=== PATIENT | female | born 1975 ===

== ENCOUNTER 2017-01-01 19:37 | Emergency (ER) | payer OTHER, SELFPAY ==
[2017-01-01 19:55] VITALS: BMI 31.6
--- NOTE | 2017-01-01 19:57 | ED PDOC ---
HPI: Female Pain Time Seen by Provider: 01/01/17 19:53 Chief Complaint (Nursing): Female Genitourinary Chief Complaint (Provider): Dysuria History Per: Patient History/Exam Limitations: no limitations Onset/Duration Of Symptoms: Days (x2-3) Current Symptoms Are (Timing): Still Present Severity: Moderate Quality Of Discomfort: Other (suprapubic) Associated Symptoms: Fever (102.7F), Chest Pain (worse w/deep inspiration) Alleviating Factors: None Additional Complaint(s): Abigail Rosen is a 41 year old female, with no pertinent past medical history, who presents to the ED on 01/01/17 for the evaluation of moderate dysuria that she has experienced x2-3 days. Associated fever (Tmax 102.7F) and suprapubic abdominal pain also reported, in addition to some midsternal chest pain that she began to experience as of today; worse with deep inspiration. Denies rhinorrhea, cough, ear pain or recent travel. Has medicated with Nyquil and Theraflu without relief. PMD: Javier Peterson Past Medical History Reviewed: Historical Data, Nursing Documentation, Vital Signs Vital Signs: Last Vital Signs Temp 102.7 F H 01/01/17 19:47 Pulse 116 H 01/01/17 19:47 Resp 20 01/01/17 19:47 BP Pulse Ox 96 01/01/17 19:47 - Medical History PMH: No Chronic Diseases - Surgical History Surgical History: No Surg Hx - Family History Family History: States: Unknown Family Hx - Living Arrangements Living Arrangements: With Family - Home Medications Home Medications: Ambulatory Orders Medication Instructions Recorded Nitrofurantoin Macrocrystals 100 mg PO BID #14 cap 01/01/17 [Macrobid] - Allergies Allergies/Adverse Reactions: Allergies Allergy/AdvReac Type Severity Reaction Status Date / Time No Known Allergies Allergy Verified 01/01/17 19:55 Review of Systems Constitutional: Positive for: Fever (Tmax 102.7F) ENT: Negative for: Ear Pain, Nose Discharge Cardiovascular: Positive for: Chest Pain (midsternal, worse with deep inspiration) Respiratory: Negative for: Cough Gastrointestinal: Positive for: Abdominal Pain (suprapubic) Genitourinary Female: Positive for: Dysuria Physical Exam - Reviewed Nursing Documentation Reviewed: Yes Vital Signs Reviewed: Yes - Physical Exam Appears: Positive for: Non-toxic, No Acute Distress Head Exam: Positive for: ATRAUMATIC, NORMOCEPHALIC Skin: Positive for: Normal Color, Warm, Dry Eye Exam: Positive for: Normal appearance, PERRL ENT: Positive for: Normal ENT Inspection Cardiovascular/Chest: Positive for: Regular Rate, Rhythm. Negative for: Murmur Respiratory: Positive for: Normal Breath Sounds. Negative for: Respiratory Distress Gastrointestinal/Abdominal: Positive for: Soft, Tenderness (mild, suprapubic) Back: Positive for: Normal Inspection. Negative for: L CVA Tenderness, R CVA Tenderness Neurologic/Psych: Positive for: Alert, Oriented - ECG O2 Sat by Pulse Oximetry: 96 (RA) Pulse Ox Interpretation: Normal Medical Decision Making Medical Decision Makin:53 Initial Impression: UTI Initial Plan: * Upreg * Urinalysis * Motrin 600mg PO * Reevaluation Pt with (+) UTI-will send cx. pt placed on macrobid. VS improved advised to return to Ed if with worsened symptoms. Scribe Attestation: Documented by Raquel Harrison, acting as a scribe for Renetta Gamez PA-C. Provider Scribe Attestation: All medical record entries made by the Scribe were at my direction and personally dictated by me. I have reviewed the chart and agree that the record accurately reflects my personal performance of the history, physical exam, medical decision making, and the department course for this patient. I have also personally directed, reviewed, and agree with the discharge instructions and disposition. Disposition - Clinical Impression Clinical Impression: Urinary tract infection - Patient ED Disposition Is Patient to be Admitted: No Counseled Patient/Family Regarding: Diagnosis, Need For Followup, Rx Given - Disposition Disposition: Routine/Home Disposition Time: 20:33 Condition: STABLE Prescriptions: Nitrofurantoin Macrocrystals [Macrobid] 100 mg PO BID #14 cap Instructions: Urinary Tract Infection in Women (GEN) Print Language: CITIZEN OF [place]
[2017-01-01 19:58] VITALS: RESP 18
[2017-01-01 20:24] LABS: RBC URINE 9 /hpf (0-3); URINE BACTERIA OCC (<OCC); URINE BILIRUBIN NEGATIVE (NEGATIVE); URINE BLOOD SMALL (NEGATIVE); URINE COLOR AMBER (YELLOW); URINE GLUCOSE (UA) NEG (Normal); URINE KETONE 20 mg/dL (NEGATIVE); URINE LEUKOCYTE ESTERASE LARGE Leu/uL (Negative); URINE PROTEIN 30 mg/dL (NEGATIVE); WBC URINE 48 /hpf (0-5)
[2017-01-01 21:12] VITALS: BP 124/78; PULSE 74; TEMP 100.4; O2SAT 98
== END 2017-01-01 21:12 | disposition home or self-care (01) ==
LOC: H.ER 19:37
DX: N39.0 Urinary tract infection, site not specified (principal)

== ENCOUNTER 2017-01-04 14:50 | Emergency (ER) | payer OTHER ==
[2017-01-04 14:50] VITALS: BMI 31.6
[2017-01-04 15:00] VITALS: BP 129/79; PULSE 101; RESP 20; O2SAT 99
[2017-01-04] MEDS ORDERED: Sodium Chloride 0.9% 1,000 ML IV SCH (15:45)
[2017-01-04 16:25] LABS: BASO % 0.2 % (0.0-2.0); EOS % 0.3 % (0.0-4.0); HEMATOCRIT 40.2 % (34.0-47.0); LYMPH % 23.2 % (20.0-40.0); MEAN CORPUSCULAR HEMOGLOBIN 28.8 pg (27.0-31.0); MEAN CORPUSCULAR HGB CONC 34.2 g/dL (33.0-37.0); MEAN PLATELET VOLUME 9.2 fl (7.2-11.7); MONO # 0.5 K/uL (0.0-0.8); MONO % 11.4 % (0.0-10.0); NEUT # 2.7 K/uL (1.8-7.0); NEUT % 64.9 % (50.0-75.0); NRBC % 0.1 % (0.0-0.0); RED CELL DISTRIBUTION WIDTH 12.9 % (11.5-14.5); WHITE BLOOD COUNT 4.1 K/uL (4.8-10.8)
--- NOTE | 2017-01-04 16:27 | ED PDOC ---
HPI: Headache Time Seen by Provider: 01/04/17 15:05 Chief Complaint (Nursing): Headache Chief Complaint (Provider): fever, headache, dysuria History Per: Patient Additional Complaint(s): pt returns today for reevaluation of fevers, h/a ongoing for 4-5 days w/ associated n/v. last temp at home 102 this am. states she was seen here for same 4 days ago and was treated for uti with macrobid. denies dizziness, blurred vision, neck pain, cp, sob, abd pain, diarrhea, numbness, weakness to extremities. Past Medical History Reviewed: Historical Data, Nursing Documentation, Vital Signs Vital Signs: Last Vital Signs Temp 98.0 F 01/04/17 14:57 Pulse 101 H 01/04/17 14:57 Resp 20 01/04/17 14:57 BP 129/79 01/04/17 14:57 Pulse Ox 99 01/04/17 14:57 - Medical History PMH: No Chronic Diseases - Family History Family History: States: No Known Family Hx - Social History Current smoker - smoking cessation education provided: No Alcohol: None - Home Medications Home Medications: Ambulatory Orders Medication Instructions Recorded Nitrofurantoin Macrocrystals 100 mg PO BID #14 cap 01/01/17 [Macrobid] Ciprofloxacin 500 mg PO BID #20 [facility]..rec 01/04/17 Ibuprofen [Motrin] 600 mg PO Q8 #20 tab 01/04/17 - Allergies Allergies/Adverse Reactions: Allergies Allergy/AdvReac Type Severity Reaction Status Date / Time No Known Allergies Allergy Verified 01/04/17 14:57 Review of Systems ROS Statement: Except As Marked, All Systems Reviewed And Found Negative Constitutional: Positive for: Fever, Chills Gastrointestinal: Positive for: Nausea, Vomiting Genitourinary Female: Positive for: Dysuria Neurological: Positive for: Headache Physical Exam - Reviewed Nursing Documentation Reviewed: Yes Vital Signs Reviewed: Yes - Physical Exam Appears: Positive for: Non-toxic, Uncomfortable Head Exam: Positive for: ATRAUMATIC, NORMAL INSPECTION, NORMOCEPHALIC Skin: Positive for: Normal Color, Warm, DRY Eye Exam: Positive for: EOMI, Normal appearance, PERRL Neck: Positive for: Normal (no meningismus), Painless ROM Cardiovascular/Chest: Positive for: Regular Rate, Rhythm Respiratory: Positive for: CNT, Normal Breath Sounds Gastrointestinal/Abdominal: Positive for: Normal Exam, Bowel Sounds, Soft. Negative for: Tenderness Back: Negative for: L CVA Tenderness, R CVA Tenderness Neurologic/Psych: Positive for: Alert, weights and measures sealer II-XII, Oriented, Gait (steady). Negative for: Motor/Sensory Deficits - Laboratory Results Result Diagrams: 01/04/17 15:55 01/04/17 15:55 - ECG O2 Sat by Pulse Oximetry: 99 Medical Decision Making Medical Decision Makin mild relief with medications given. wbc 4.1. mild bacturia. ct head neg. pt seen and evaluated by Dr. Worrell. will add flu swab, motrin and reevaluate to discuss spinal tap. 1939 h/a resolving with motrin given. flu neg. risks/benefits spinal tap discussed with patient and family. pt elects at this time not to have spinal tap performed. will change abx based on urine sensitivity and give motrin for pain. advised pt to return at any time should she change her mind or have worsening or severe symptoms. will sign ama forms. Disposition - Clinical Impression Clinical Impression: Headache, Urinary tract infection - Patient ED Disposition Is Patient to be Admitted: No - Disposition Referrals: Javier Peterson MD [Primary Care Provider] - Disposition: Against Medical Advice Disposition Time: 19:42 Condition: IMPROVED Prescriptions: Ciprofloxacin 500 mg PO BID #20 [email or web address] Ibuprofen [Motrin] 600 mg PO Q8 #20 tab Instructions: Lumbar Puncture (ED), Acute Headache (ED), Urinary Tract Infection in Women (ED) Print Language: WELSH
[2017-01-04 16:29] LABS: BLOOD UREA NITROGEN 11 mg/dl (7-17); CALCIUM 8.9 mg/dL (8.4-10.2); CARBON DIOXIDE 25 mmol/L (22-30); CHLORIDE 100 mmol/L (98-107); GFR AFRICAN-AMERICAN > 60; GLUCOSE,RANDOM 123 mg/dL (65-105); POTASSIUM 3.5 MMOL/L (3.6-5.0); SODIUM 141 mmol/l (132-148)
[2017-01-04 16:31] LABS: MEAN CELL VOLUME 84.1 fl (81.0-99.0)
[2017-01-04 16:39] LABS: RBC URINE 2 /hpf (0-3); URINE BACTERIA FEW (<OCC); URINE BILIRUBIN NEGATIVE (NEGATIVE); URINE BLOOD SMALL (NEGATIVE); URINE COLOR YELLOW (YELLOW); URINE GLUCOSE (UA) NEG (Normal); URINE KETONE 20 mg/dL (NEGATIVE); URINE LEUKOCYTE ESTERASE NEG Leu/uL (Negative); URINE PROTEIN NEGATIVE (NEGATIVE); URINE UROBILINOGEN 0.2-1.0 mg/dL (0.2-1.0); WBC URINE 2 /hpf (0-5)
--- NOTE | 2017-01-04 17:11 | CT ---
PROCEDURE: CT HEAD WITHOUT CONTRAST. HISTORY: headache COMPARISON: Comparison is made to the previous study dated 12/10/2015 TECHNIQUE: Axial computed tomography images were obtained through the head/brain without intravenous contrast. Radiation dose: Total exam DLP = 778.9 mGy-cm. FINDINGS: HEMORRHAGE: No intracranial hemorrhage. BRAIN: No mass effect or edema. No atrophy or chronic microvascular ischemic changes. VENTRICLES: Unremarkable. No hydrocephalus. CALVARIUM: Unremarkable. PARANASAL SINUSES: Unremarkable as visualized. No significant inflammatory changes. MASTOID AIR CELLS: Unremarkable as visualized. No inflammatory changes. OTHER FINDINGS: None. IMPRESSION: Normal CT of the Head.
[2017-01-04 18:23] VITALS: TEMP 98.1
== END 2017-01-04 20:03 | disposition home or self-care (01) ==
LOC: H.ER 14:50
DX: N39.0 Urinary tract infection, site not specified (principal); R51 Headache

== ENCOUNTER 2018-06-09 12:07 | Emergency (ER) | payer OTHER, SELFPAY ==
[2018-06-09 12:07] VITALS: BMI 31.6
[2018-06-09 12:14] VITALS: BP 111/76; PULSE 78; RESP 16; TEMP 98; O2SAT 98
[2018-06-09] MEDS: Sodium Chloride 0.9% 1,000 ML IV STA (13:22)
[2018-06-09 13:36] LABS: BASO % 0.4 % (0.0-2.0); EOS # 0.1 K/uL (0.0-0.7); EOS % 2.5 % (0.0-4.0); HEMOGLOBIN 12.7 g/dL (12.0-16.0); LYMPH # 0.9 K/uL (1.0-4.3); LYMPH % 25.4 % (20.0-40.0); MEAN CELL VOLUME 86.7 fl (81.0-99.0); MEAN CORPUSCULAR HEMOGLOBIN 29.2 pg (27.0-31.0); MEAN CORPUSCULAR HGB CONC 33.7 g/dL (33.0-37.0); MEAN PLATELET VOLUME 8.2 fl (7.2-11.7); MONO # 0.4 K/uL (0.0-0.8); MONO % 11.4 % (0.0-10.0); NEUT # 2.2 K/uL (1.8-7.0); NEUT % 60.3 % (50.0-75.0); RBC 4.34 Mil/uL (3.80-5.20); RED CELL DISTRIBUTION WIDTH 13.2 % (11.5-14.5); WHITE BLOOD COUNT 3.6 K/uL (4.8-10.8)
[2018-06-09 13:40] LABS: SQUAMOUS EPITHIAL 2 /hpf (0-5); URINE BILIRUBIN NEGATIVE (NEGATIVE); URINE BLOOD SMALL (NEGATIVE); URINE CLARITY CLOUDY (Clear); URINE COLOR YELLOW (YELLOW); URINE GLUCOSE (UA) NEG (Normal); URINE LEUKOCYTE ESTERASE NEG Leu/uL (Negative); URINE PROTEIN 30 mg/dL (NEGATIVE); URINE UROBILINOGEN 0.2-1.0 mg/dL (0.2-1.0)
[2018-06-09 13:53] LABS: ALT/SGPT 22 U/L (9-52); AMYLASE 111 U/L (30-110); AST/SGOT 23 U/L (14-36); BLOOD UREA NITROGEN 11 mg/dl (7-17); CALCIUM 8.7 mg/dL (8.4-10.2); GFR NON-AFRICAN AMERICAN > 60; LIPASE 108 U/L (23-300)
--- NOTE | 2018-06-09 13:55 | ED PDOC ---
HPI: General Adult Time Seen by Provider: 06/09/18 12:20 Chief Complaint (Nursing): Abdominal Pain Chief Complaint (Provider): Abdominal Pain History Per: Patient Onset/Duration Of Symptoms: Days Current Symptoms Are (Timing): Still Present Additional Complaint(s): 42 year old female presents to the ED for an evaluation of abdominal cramping, tactile fever and diarrhea onset 4 days ago. Also reports of 3 -9 episodes of loose watery stool. Patient states she feels balls on her left buttock that are painful, swollen and red. She denies vomiting or nausea. PMD: Javier Peterson Past Medical History Reviewed: Historical Data, Nursing Documentation, Vital Signs Vital Signs: Last Vital Signs Temp 98.0 F 06/09/18 12:11 Pulse 78 06/09/18 12:11 Resp 16 06/09/18 12:11 BP 111/76 06/09/18 12:11 Pulse Ox 98 06/09/18 14:04 - Medical History PMH: No Chronic Diseases - Family History Family History: States: Unknown Family Hx - Social History Current smoker - smoking cessation education provided: No Alcohol: None Drugs: Denies - Home Medications Home Medications: Ambulatory Orders Medication Instructions Recorded Nitrofurantoin Macrocrystals 100 mg PO BID #14 cap 01/01/17 [Macrobid] Ciprofloxacin 500 mg PO BID #20 [facility]..rec 01/04/17 Ibuprofen [Motrin] 600 mg PO Q8 #20 tab 01/04/17 Acetaminophen/Codeine 1 tab PO Q4H #10 tab 06/09/18 [Tylenol/Codeine 300 MG/30 MG] Acyclovir [Zovirax] 800 mg PO 5XD 7 Days tab 06/09/18 Methylprednisolone [Medrol Dose 4 mg PO DAILY #21 mg 06/09/18 Pack (21 tabs)] - Allergies Allergies/Adverse Reactions: Allergies Allergy/AdvReac Type Severity Reaction Status Date / Time No Known Allergies Allergy Verified 06/09/18 12:11 Review of Systems ROS Statement: Except As Marked, All Systems Reviewed And Found Negative Constitutional: Positive for: Fever (tactile ) Gastrointestinal: Positive for: Abdominal Pain, Diarrhea, Other (watery stool ) . Negative for: Nausea, Vomiting Psych: Negative for: Suicidal ideation (homicidal ideation ) Physical Exam - Reviewed Nursing Documentation Reviewed: Yes Vital Signs Reviewed: Yes - Physical Exam Appears: Positive for: Well, Non-toxic, No Acute Distress Head Exam: Positive for: ATRAUMATIC, NORMAL INSPECTION, NORMOCEPHALIC Skin: Positive for: Rash (Left butt cheek is tender with erythematous vesicles, eruption s4 dermatome) Eye Exam: Positive for: Normal appearance, EOMI, PERRL ENT: Positive for: Normal ENT Inspection Neck: Positive for: Normal, Painless ROM, Supple. Negative for: Decreased ROM Cardiovascular/Chest: Positive for: Regular Rate, Rhythm. Negative for: Murmur Respiratory: Positive for: Normal Breath Sounds. Negative for: Decreased Breath Sounds, Wheezing, Respiratory Distress Gastrointestinal/Abdominal: Positive for: Normal Exam, Bowel Sounds, Soft. Negative for: Tenderness, Guarding, Rebound Back: Positive for: Normal Inspection. Negative for: L CVA Tenderness, R CVA Tenderness Extremity: Positive for: Normal ROM, Tenderness. Negative for: Pedal Edema, Deformity, Swelling Neurologic/Psych: Positive for: Alert, Oriented (x3). Negative for: Motor/ Sensory Deficits - Laboratory Results Result Diagrams: 06/09/18 13:20 06/09/18 13:20 - ECG O2 Sat by Pulse Oximetry: 98 (RA) Pulse Ox Interpretation: Normal Medical Decision Making Medical Decision Making: Time: 1309 Initial Impression: viral syndrome and shingles Initial Plan: --Amylase --CMP --Lipase --ED Urine --ED Urine Dipstick --CBC w/ Differential --Normal Saline 999mls/hr --SOLU-Medrol 125mg --Toradol 30mg --Zovirax 800mg --Urine Culture --IV Insertion --Urinalysis --Reevaluation Pt on re-eval reports pain is greatly improved. Scribe Attestation: Documented by Jyotsna Lawrence, acting as a scribe for Bree A Petronella, PA-C. Provider Scribe Attestation: All medical record entries made by the Scribe were at my direction and personally dictated by me. I have reviewed the chart and agree that the record accurately reflects my personal performance of the history, physical exam, medical decision making, and the department course for this patient. I have also personally directed, reviewed, and agree with the discharge instructions and disposition. Disposition - Clinical Impression Clinical Impression: Shingles, Viral syndrome - Patient ED Disposition Is Patient to be Admitted: No - Disposition Disposition: Routine/Home Disposition Time: 14:00 Condition: STABLE Prescriptions: Acetaminophen/Codeine [Tylenol/Codeine 300 MG/30 MG] 1 tab PO Q4H #10 tab Acyclovir [Zovirax] 800 mg PO 5XD 7 Days tab Methylprednisolone [Medrol Dose Pack (21 tabs)] 4 mg PO DAILY #21 mg Instructions: Shingles (DC), Viral Syndrome (DC) Forms: [facility] [facility] (Guatemalan) Print Language: DANISH
[2018-06-09] MEDS: Potassium Chloride 20 mEq ER Tab PO ONE (17:06)
[2018-06-09] MEDS ORDERED: Potassium Chloride 20 mEq ER Tab PO ONE (17:06)
== END 2018-06-09 17:15 | disposition home or self-care (01) ==
LOC: H.ER 12:07
DX: B34.9 Viral infection, unspecified (principal); B02.9 Zoster without complications
CPT/HCPCS: 80053; 81003; 82150; 83690; 85025; 87086; 96361; 96374; 96375; 99285; J1885; J2930; J7030

== ENCOUNTER 2018-11-08 12:22 | Emergency (ER) | payer SELFPAY ==
[2018-11-08 12:23] VITALS: BMI 31.6
[2018-11-08 12:55] VITALS: BP 121/76; PULSE 78; RESP 16; TEMP 97.6; O2SAT 100
--- NOTE | 2018-11-08 13:32 | ED PDOC ---
HPI: Skin/Bite Injury Time Seen by Provider: 11/08/18 13:20 Chief Complaint (Nursing): Abnormal Skin Integrity Chief Complaint (Provider): Left Sided Facial Swelling History Per: Patient History/Exam Limitations: no limitations Onset/Duration Of Symptoms: Days (x1) Current Symptoms Are (Timing): Still Present Additional Complaint(s): 43 year old female presents to the ED for evaluation of painless left sided facial swelling onset yesterday described as mildly uncomfortable, but no significant pain. Pt. is tolerating po, denies any difficulty eating/drinking. Otherwise, denies fever, dental pain, rash. PMD: [place] Past Medical History Reviewed: Historical Data, Nursing Documentation, Vital Signs Vital Signs: Last Vital Signs Temp 97.6 F 11/08/18 12:53 Pulse 78 11/08/18 12:53 Resp 16 11/08/18 12:53 BP 121/76 11/08/18 12:53 Pulse Ox 100 11/08/18 12:53 - Medical History PMH: No Chronic Diseases - Surgical History Surgical History: No Surg Hx - Family History Family History: States: Unknown Family Hx - Home Medications Home Medications: Ambulatory Orders Medication Instructions Recorded Nitrofurantoin Macrocrystals 100 mg PO BID #14 cap 01/01/17 [Macrobid] Ciprofloxacin 500 mg PO BID #20 [facility]..rec 01/04/17 Ibuprofen [Motrin] 600 mg PO Q8 #20 tab 01/04/17 Acetaminophen/Codeine 1 tab PO Q4H #10 tab 06/09/18 [Tylenol/Codeine 300 MG/30 MG] Acyclovir [Zovirax] 800 mg PO 5XD 7 Days tab 06/09/18 Methylprednisolone [Medrol Dose 4 mg PO DAILY #21 mg 06/09/18 Pack (21 tabs)] Ibuprofen [Motrin Tab] 600 mg PO TID 5 Days #15 tab 11/08/18 - Allergies Allergies/Adverse Reactions: Allergies Allergy/AdvReac Type Severity Reaction Status Date / Time No Known Allergies Allergy Verified 11/08/18 12:52 Review of Systems ROS Statement: Except As Marked, All Systems Reviewed And Found Negative Constitutional: Negative for: Fever, Chills, Sweats, Weight loss ENT: Negative for: Ear Pain, Ear Discharge, Throat Pain, Other (dental pain) Skin: Positive for: Other (left sided facial swelling) Physical Exam - Reviewed Nursing Documentation Reviewed: Yes Vital Signs Reviewed: Yes - Physical Exam Appears: Positive for: Well, Non-toxic, No Acute Distress Head Exam: Positive for: ATRAUMATIC, NORMOCEPHALIC Skin: Positive for: Normal Color, Warm, Dry Eye Exam: Positive for: Normal appearance ENT: Positive for: Other ((+) Well circumscribed area of nontender swelling with no erythema, fluctuance, or induration in left preauricular area; dentition intact, no gingival swelling, intraoral abscess, or tooth tenderness to percussion; No salivary stone seen, no purulence. Airway is widely patent). Negative for: Nasal Congestion, Pharyngeal Erythema Neck: Positive for: Normal, Painless ROM, Supple Lymphatic: Negative for: Other (cervical lymphadenopathy) Neurologic/Psych: Positive for: Alert, Oriented (x3). Negative for: Motor/Sensory Deficits - ECG O2 Sat by Pulse Oximetry: 100 (RA) Pulse Ox Interpretation: Normal Medical Decision Making Medical Decision Making: Time: 1324 Initial Impression: left sided facial swelling Initial Plan: --Ibuprofen 600mg PO Pt. well appearing, no evidence of infectious process, warm compresses, motrin, f/u ENT if no resolution. Scribe Attestation: Documented by Mimi Schultz, acting as a scribe for Monica Wilkes PA-C. Provider Scribe Attestation: All medical record entries made by the Scribe were at my direction and personally dictated by me. I have reviewed the chart and agree that the record accurately reflects my personal performance of the history, physical exam, medical decision making, and the department course for this patient. I have also personally directed, reviewed, and agree with the discharge instructions and disposition. Disposition - Clinical Impression Clinical Impression: Sialadenitis - Patient ED Disposition Is Patient to be Admitted: No Counseled Patient/Family Regarding: Diagnosis - Disposition Referrals: Koffi Bellamy MD [Staff Provider] - Disposition: Routine/Home Disposition Time: 13:44 Condition: STABLE Prescriptions: Ibuprofen [Motrin Tab] 600 mg PO TID 5 Days #15 tab Instructions: Parotitis, Salivary Gland Infection (DC) Forms: [facility] (Yakut) Print Language: FIJIAN
== END 2018-11-08 13:55 | disposition home or self-care (01) ==
LOC: H.ER 12:22
DX: K11.20 Sialoadenitis, unspecified (principal)